=== PATIENT | male | born 1965 | race Two or more races ===

== ENCOUNTER 2020-04-06 07:54 | Outpatient (CLI) | payer OTHER ==
[~2020-04-06 07:54] MED LIST: ALLEGRA ALLERG180 MG PO; ATORVASTATIN CA10 MG; AZITHROMYCIN500 MG PO; DEXAMETHAS0.5 MG/51 PO; GUAIFENESI100 MG/52 PO; INTEGRA PLUS C1 EACH PO; INTESTINEX1 CA1 PO; Medrol PO; NORVASC2.5 MG; RESTORIL15 MG PO
== END 2020-04-06 07:57 ==
LOC: RAD 07:54
PROVIDERS: ATTEND Internal Medicine Cardiovascular Disease
DX: J32.8 Other chronic sinusitis (principal); J45.998 Other asthma

== ENCOUNTER 2020-04-18 13:07 | Outpatient (CLI) | payer OTHER | END 2020-04-18 13:09 | disposition home or self-care (01) | LOC: NUCLEAR 13:07 | PROVIDERS: ATTEND Internal Medicine Cardiovascular Disease | DX: M81.0 Age-related osteoporosis without current pathological fracture (principal) ==

== ENCOUNTER 2021-10-10 10:20 | Outpatient (CLI) | payer OTHER | END 2021-10-10 10:21 | disposition home or self-care (01) | LOC: NUCLEAR 10:20 | PROVIDERS: ATTEND Internal Medicine Cardiovascular Disease | DX: M81.0 Age-related osteoporosis without current pathological fracture (principal); Z88.6 Allergy status to analgesic agent ==

== ENCOUNTER 2022-02-01 11:00 | Outpatient (CLI) | payer OTHER | END 2022-02-01 11:04 | disposition home or self-care (01) | LOC: RAD 11:00 | PROVIDERS: ATTEND Internal Medicine Cardiovascular Disease | DX: I10 Essential (primary) hypertension (principal); N17.9 Acute kidney failure, unspecified ==

== ENCOUNTER 2023-05-08 14:42 | Emergency (ER) | payer OTHER ==
[~2023-05-08] VITALS: Ht 175.3 cm; Wt 72.6 kg
== END 2023-05-08 18:10 | disposition home or self-care (01) ==
LOC: ER 14:42
DX: S00.31XA Abrasion of nose, initial encounter (principal); W54.0XXA Bitten by dog, initial encounter; Y93.89 Activity, other specified; Y92.89 Other specified places as the place of occurrence of the external cause; Z88.6 Allergy status to analgesic agent

== ENCOUNTER 2023-11-29 12:51 | Outpatient (CLI) | payer OTHER | END 2023-11-29 12:55 | disposition home or self-care (01) | LOC: RAD 12:51 | PROVIDERS: ATTEND Internal Medicine Cardiovascular Disease | DX: M54.50 Low back pain, unspecified (principal); M41.9 Scoliosis, unspecified ==

== ENCOUNTER → 2025-01-26 | Outpatient (CLI) | payer OTHER | END | disposition home or self-care (01) | LOC: RAD 09:35 | DX: M41.9 Scoliosis, unspecified (principal) ==